=== PATIENT | male | born 1955 | race Caucasian/White ===

== ENCOUNTER 2018-04-17 08:28 | Emergency (ER) | payer OTHER ==
[~2018-04-17] VITALS: Ht 172.7 cm; Wt 106.8 kg
--- NOTE | ~2018-04-17 | MORECARE ---
CASE MANAGEMENT DISCHARGE SUMMARY PATIENT: VERONICA GALINDO UNIT: [id number] ADM DATE: AGE: 62 : 57 SEX: M ROOM/BED: AUTHOR: LUCRECIA PROCTOR PHYSICIAN: REFERRING PHYSICIAN: CORY PAL MD DATE OF SERVICE: 04/17/18 Discharge Plan Patient Name: VERONICA GALINDO Facility: [facility]:[place] : 1955 Planned Disposition: Anticipated Discharge Date: Discharge Date: Expected LOS: 0 Initial Reviewer: [email or web address] Initial Review Date: 04/17/2018 Generated: 04/17/18 2:11 pm Comments DCP- Discharge Planning Updated by [email or web address]: Antoinette Wright on 04/17/18 12:[address] Contacted Zenia @[email or web address] per patient request, provided required information for , RN, DX. Await CB. Antoinette Wright RN CM Last DP export: 04/17/18 12:04 Patient Name: VERONICA GALINDO Page 48860 at 1311 All edits/amendments must be made on the electronic document DICTATION DATE: 04/17/18 131 SHOE PLANNER: OMKAR 04/17/18 1311 RPT#: [id number] DC DATE: STATUS: REG ER [facility] [address] [place] [address] END OF REPORT
--- NOTE | ~2018-04-17 | MORECARE ---
CASE MANAGEMENT DISCHARGE SUMMARY PATIENT: VERONICA GALINDO UNIT: [id number] ADM DATE: AGE: 62 : 57 SEX: M ROOM/BED: AUTHOR: LUCRECIA PROCTOR PHYSICIAN: REFERRING PHYSICIAN: CORY PAL MD DATE OF SERVICE: 04/17/18 Discharge Plan Patient Name: VERONICA GALINDO Facility: [facility]:[place] : 1955 Planned Disposition: Anticipated Discharge Date: Discharge Date: Expected LOS: 0 Initial Reviewer: [email or web address] Initial Review Date: 04/17/2018 Generated: 04/17/18 2:04 pm Patient Name: VERONICA GALINDO Page 92711 at 1304 All edits/amendments must be made on the electronic document DICTATION DATE: 04/17/18 1304 POISON INFORMATION SPECIALIST: OMKAR 04/17/18 1304 RPT#: [id number] DC DATE: STATUS: REG ER [facility] [address] [place] [address] END OF REPORT
--- NOTE | ~2018-04-17 | MORECARE ---
CASE MANAGEMENT DISCHARGE SUMMARY PATIENT: VERONICA GALINDO UNIT: [id number] ADM DATE: AGE: 62 : 57 SEX: M ROOM/BED: AUTHOR: LUCRECIA PROCTOR PHYSICIAN: REFERRING PHYSICIAN: CORY PAL MD DATE OF SERVICE: 04/19/18 Discharge Plan Patient Name: VERONICA GALINDO Facility: [facility]:[place] : 1955 Planned Disposition: Anticipated Discharge Date: Discharge Date: 04/17/2018 Expected LOS: 0 Initial Reviewer: [email or web address] Initial Review Date: 04/17/2018 Generated: 04/19/18 4:59 pm Comments DCP- Discharge Planning Updated by [email or web address]: Antoinette Wright on 04/17/18 12:[address] Contacted Zenia [email or web address] per patient request, provided required information for , RN, DX. Await CB. Antoinette Wright RN CM Last DP export: 04/17/18 12:11 Patient Name: VERONICA GALINDO Page 50751 at 1559 All edits/amendments must be made on the electronic document DICTATION DATE: 04/19/181558 SILVERER: OMKAR 04/19/181558 RPT#: [id number] DC DATE:04/17/18 STATUS: DEP [address] [address] END OF REPORT
[2018-04-17 08:46] VITALS: Ht 172.7 cm; Wt 106.8 kg
[2018-04-17] MEDS ORDERED: DILAUDID4 MG PO (14:00)
[2018-04-17 14:46] VITALS: BP 143/91
== END 2018-04-17 14:49 | disposition home or self-care (01) ==
LOC: D.ER 08:28
DX: M54.5 Low back pain (principal); G58.8 Other specified mononeuropathies

== ENCOUNTER 2018-12-29 14:57 | Inpatient (IN) | payer OTHER ==
[~2018-12-29] VITALS: Ht 172.7 cm; Wt 103.9 kg
--- NOTE | ~2018-12-29 | CN ---
PATIENT NAME:VERONICA GALINDO MEDICAL RECORD: [id number] : 57 LOCATION:D.MS [address] ADMIT DATE: 12/29/18 ACCOUNT: [id number] CONSULTING PHYSICIAN: MORRIS ARIAS MD REFERRING PHYSICIAN: SMITA CASSIDY MD DATE OF CONSULTATION: 01/01/2019 CARDIOLOGY CONSULTATION. DIAGNOSES: 1. Preoperative evaluation. 2. Hypertension. 3. Hyperlipidemia. 4. Diabetes. HISTORY OF PRESENT ILLNESS: Mr. Galindo has had no previous cardiac history, has risk factors of hypertension, hyperlipidemia, and diabetes. No chest pain. No chest discomfort, no palpitations, no shortness of breath or dyspnea on exertion, was admitted with pancreatitis, is now being evaluated for laparoscopic cholecystectomy. EKG is with no ST-T abnormalities. PHYSICAL EXAMINATION: GENERAL APPEARANCE: Well-nourished, well-developed, appears stated age. Level of distress, comfortable. PSYCHIATRIC: Mental status, alert, normal affect. Orientation, oriented to time, place and person. EYES: Lids and conjunctiva, noninjected. No discharge, no pallor. ENT: Lips, teeth, gums, normal dentition. Oropharynx, no cyanosis, no pallor. NECK: Carotid arteries, bilateral normal upstroke, no bruits, no thrills. JUGULAR VEINS: No jugular venous pressure or distention. CERVICAL LYMPH NODES: Nontender, nonenlarged. THYROID: Not enlarged. Nontender. No nodules. LUNGS: Respiratory effort, unlabored. CHEST: Normal curvature. No thoracic deformity. No chest wall tenderness. Percussion, resonant. Auscultation, clear. No wheezes, no rales, no rhonchi. CARDIOVASCULAR: Precordial exam, nondisplaced. No heaves or pericardial thrills. Rate and rhythm, regular. Heart sounds, normal S1, normal S2. No S3, no gallop, no rub. Systolic murmur, not heard. Diastolic murmur, not heard. EXTREMITIES: No cyanosis, no edema. Peripheral pulses, full and equal in all extremities, except as noted. No bruits appreciated. ABDOMEN: Soft, nondistended. Normal aorta. No bruit. Nontender. No masses. Liver, nontender, no hepatomegaly. Spleen, nontender, no splenomegaly. MUSCULOSKELETAL: No joint tenderness. No joint swelling. No erythema. NEUROLOGICAL: Normal gait, normal strength, normal tone. SKIN: Warm and dry. OVERALL IMPRESSION: Low risk from a cardiac standpoint, multiple risk factors. Normal EKG, no symptomatology at this time, proceed with surgery at low cardiac risk. TRANSINT:[id number] Voice Confirmation ID: [id number] DOCUMENT ID: [id number] CONSULT REPORT [id number] VERONICA GALINDO JEFFREY MD CC: [id number] DICTATION DATE: 01/01/19 1158 CHRONOGRAPH OPERATOR: 01/01/19 1320 ADM IN [place] [id number] [place] [address]
[~2018-12-29 14:57] MED LIST: DILAUDID4 MG PO
[2018-12-29 15:43] LABS: BASOPHILS 0.1 % (0-2); EOSINOPHILS 0.8 % (0-7); HEMATOCRIT 39.8 % (42.0-54.0); HEMOGLOBIN 13.2 g/dL (13.5-17.5); IMMATURE GRANULOCYTES 0.3 % (0-5); LYMPHOCYTES 12.6 % (15-50); MCH 27.4 pg (26.0-34.0); MCHC 33.2 g/dL (31.0-37.0); MCV 82.7 fL (80.0-100.0); MEAN PLATELET VOLUME 11.3 fL (7.4-10.4); MONOCYTES 7.8 % (2-11); NEUTROPHILS 78.4 % (40-80); PLATELET COUNT 140 10x3/uL (130-400); RBC 4.81 10x6/uL (4.20-6.10); RDW 14.7 % (11.5-14.5); WBC 7.9 10x3/uL (4.8-10.8)
[2018-12-29 16:06] LABS: ALBUMIN 3.3 g/dL (3.4-5.0); ALKALINE PHOSPHATASE 53 U/L (46-116); ALT (SGPT) 28 U/L (10-68); BILIRUBIN - TOTAL 0.76 mg/dL (0.2-1.3); CALC OSMOLALITY 286 mosm/kg (275-300); CALCIUM 9.1 mg/dL (8.5-10.1); CARBON DIOXIDE 23.5 mmol/L (21.0-32.0); CHLORIDE - SERUM 103 mmol/L (98-107); CREATININE - SERUM 1.6 mg/dL (0.6-1.3); GLUCOSE 264 mg/dL (74-106); SODIUM 137 mmol/L (136-145); UREA NITROGEN 25 mg/dL (7-18); eGFR NON AFRICAN AMERICAN 47 mL/min (90-120)
[2018-12-29 16:09] LABS: AMYLASE - SERUM 57 U/L (25-115); LIPASE 187 U/L (73-393); TROPONIN-I < 0.017 ng/mL (0.000-0.060)
[2018-12-29 17:17] LABS: APPEARANCE CLEAR (CLEAR); BILIRUBIN NEGATIVE (NEGATIVE); COLOR YELLOW (YELLOW); GLUCOSE 250 mg/dL (NEGATIVE); KETONE SMALL mg/dL (NEGATIVE); NITRITE NEGATIVE (NEGATIVE); PROTEIN 1+ mg/dL (NEGATIVE); UROBILINOGEN NORMAL (NORMAL)
[2018-12-29 17:52] VITALS: BP 153/81
[2018-12-29 18:26] LABS: CHOL - HDL RATIO 3.2 ratio (2.3-4.9); LDL-HDL RATIO 1.5 ratio (1.5-3.5)
[2018-12-29 18:49] VITALS: BP 157/76
[2018-12-29] MEDS ORDERED: CRESTOR20 MG PO (20:39)
[2018-12-29] MEDS ORDERED: LEVEMIR IN100 UNITS/ SC ×2 (20:40)
[2018-12-29] MEDS ORDERED: PRINIVIL20 MG PO (20:41)
[2018-12-29] MEDS ORDERED: TERAZOSIN HCL2 MG PO (20:41)
[2018-12-29] MEDS ORDERED: OMEPRAZOLE20 M1 PO (20:41)
[2018-12-29] MEDS ORDERED: NOVOLOG100 UNIT/1 SC (20:42)
[2018-12-29] MEDS ORDERED: GLIMEPIRIDE4 MG PO (20:43)
[2018-12-29] MEDS ORDERED: LASIX20 MG PO (22:11)
[2018-12-29 22:53] VITALS: BP 144/82; BMI 35.0
[2018-12-30 04:00] VITALS: BP 142/77
[2018-12-30 09:11] VITALS: BP 144/74
[2018-12-30 13:08] VITALS: BMI 34.9
[2018-12-30 16:04] LABS: BASOPHILS 0.1 % (0-2); EOSINOPHILS 1.9 % (0-7); HEMATOCRIT 36.4 % (42.0-54.0); LYMPHOCYTES 17.2 % (15-50); MCH 27.6 pg (26.0-34.0); MCV 83.9 fL (80.0-100.0); MEAN PLATELET VOLUME 11.7 fL (7.4-10.4); MONOCYTES 10.2 % (2-11); NEUTROPHILS 70.6 % (40-80); PLATELET COUNT 137 10x3/uL (130-400); RBC 4.34 10x6/uL (4.20-6.10); RDW 14.8 % (11.5-14.5); WBC 7.3 10x3/uL (4.8-10.8)
[2018-12-30 16:40] LABS: ALBUMIN 3.1 g/dL (3.4-5.0); ANION GAP 15.9 mmol/L (8-16); BILIRUBIN - TOTAL 0.63 mg/dL (0.2-1.3); CALCIUM 8.7 mg/dL (8.5-10.1); CARBON DIOXIDE 21.8 mmol/L (21.0-32.0); CREATININE - SERUM 1.7 mg/dL (0.6-1.3); POTASSIUM - SERUM 3.7 mmol/L (3.5-5.1); PROTEIN - SERUM 6.1 g/dL (6.4-8.2)
[2018-12-30 17:30] VITALS: BP 122/82
[2018-12-30 20:00] VITALS: BP 139/74
[2018-12-31 01:37] VITALS: BP 116/52
[2018-12-31 06:05] LABS: BASOPHILS 0.2 % (0-2); EOSINOPHILS 4.5 % (0-7); HEMATOCRIT 36.6 % (42.0-54.0); HEMOGLOBIN 11.6 g/dL (13.5-17.5); IMMATURE GRANULOCYTES 0.2 % (0-5); LYMPHOCYTES 25.6 % (15-50); MCH 27.2 pg (26.0-34.0); MCHC 31.7 g/dL (31.0-37.0); MEAN PLATELET VOLUME 11.7 fL (7.4-10.4); MONOCYTES 10.4 % (2-11); NEUTROPHILS 59.1 % (40-80); PLATELET COUNT 143 10x3/uL (130-400); RBC 4.26 10x6/uL (4.20-6.10); RDW 15.1 % (11.5-14.5); WBC 6.3 10x3/uL (4.8-10.8)
[2018-12-31 06:20] LABS: ALBUMIN 2.8 g/dL (3.4-5.0); ALKALINE PHOSPHATASE 45 U/L (46-116); ALT (SGPT) 27 U/L (10-68); AMYLASE - SERUM 52 U/L (25-115); BILIRUBIN - TOTAL 0.44 mg/dL (0.2-1.3); CALCIUM 8.4 mg/dL (8.5-10.1); CHLORIDE - SERUM 108 mmol/L (98-107); CREATININE - SERUM 1.6 mg/dL (0.6-1.3); LIPASE 149 U/L (73-393); MAGNESIUM - SERUM 2.3 mg/dL (1.8-2.4); MCV 85.9 fL (80.0-100.0); PHOSPHOROUS 3.4 mg/dL (2.5-4.9); POTASSIUM - SERUM 4.2 mmol/L (3.5-5.1); PROTEIN - SERUM 6.2 g/dL (6.4-8.2); SODIUM 141 mmol/L (136-145); UREA NITROGEN 19 mg/dL (7-18); eGFR NON AFRICAN AMERICAN 47 mL/min (90-120)
[2018-12-31 06:25] LABS: CALC OSMOLALITY 283 mosm/kg (275-300); CARBON DIOXIDE 27.5 mmol/L (21.0-32.0); GLUCOSE 120 mg/dL (74-106); TROPONIN-I < 0.017 ng/mL (0.000-0.060)
[2018-12-31 09:30] VITALS: BP 141/80
[2018-12-31 14:01] VITALS: BP 147/78
--- NOTE | 2018-12-31 15:58 | MORECARE ---
CASE MANAGEMENT DISCHARGE SUMMARY PATIENT: VERONICA GALINDO UNIT: [id number] ADM DATE: 12/29/18 AGE: 63 : 57 SEX: M ROOM/BED: D.2215 AUTHOR: LUCRECIA PROCTOR PHYSICIAN: REFERRING PHYSICIAN: SMITA CASSIDY MD DATE OF SERVICE: 12/31/18 Discharge Plan Patient Name: VERONICA GALINDO [facility] [facility] 1955 Planned Disposition: Home Anticipated Discharge Date: Discharge Date: Expected LOS: Initial Reviewer: [email or web address] Initial Review Date: 12/29/2018 Generated: 12/31/18 4:58 pm DCPIA - Discharge Planning Initial Assessment Updated by [email or web address]: Racquel Sanchez on 12/31/18 3:57 pm * Is the patient Alert and Oriented? Yes * How many steps to enter\exit or inside your home? * [place]CP [facility] ([place]) * [place] * Preadmission Environment Home with Family * ADLs Independent * Equipment None * List name and contact numbers for known caregivers / representatives who currently or will assist patient after discharge: Dillon Womack [phone] * Verbal permission to speak to the caregivers and representatives has been obtained from the patient. N/A * Community resources currently utilized None * Additional services required to return to the preadmission environment? No * Can the patient safely return to the preadmission environment? Yes * Has this patient been hospitalized within the prior 30 days at any hospital? No Patient Name: VERONICA GALINDO Page 50397 at 1558 All edits/amendments must be made on the electronic document DICTATION DATE: 12/31/18 1558 RESTAURANT DISTRICT MANAGER: OMKAR 12/31/18 1558 RPT#: [id number] DC DATE: STATUS: ADM IN [facility] [address] [place] [address] END OF REPORT
[2018-12-31 15:59] LABS: BASOPHILS 0.3 % (0-2); EOSINOPHILS 4.4 % (0-7); HEMATOCRIT 36.5 % (42.0-54.0); HEMOGLOBIN 11.6 g/dL (13.5-17.5); IMMATURE GRANULOCYTES 0.2 % (0-5); LYMPHOCYTES 22.3 % (15-50); MCH 27.2 pg (26.0-34.0); MCHC 31.8 g/dL (31.0-37.0); MCV 85.5 fL (80.0-100.0); MEAN PLATELET VOLUME 11.5 fL (7.4-10.4); MONOCYTES 9.3 % (2-11); NEUTROPHILS 63.5 % (40-80); PLATELET COUNT 139 10x3/uL (130-400); RBC 4.27 10x6/uL (4.20-6.10); RDW 14.9 % (11.5-14.5); WBC 6.5 10x3/uL (4.8-10.8)
--- NOTE | 2018-12-31 16:06 | MORECARE ---
CASE MANAGEMENT DISCHARGE SUMMARY PATIENT: VERONICA GALINDO UNIT: [id number] ADM DATE: 12/29/18 AGE: 63 : 57 SEX: M ROOM/BED: D.2215 AUTHOR: ESTHELADOC PHYSICIAN: REFERRING PHYSICIAN: SMITA CASSIDY MD DATE OF SERVICE: 12/31/18 Discharge Plan Patient Name: VERONICA GALINDO Facility: [facility]:[place] : 1955 Planned Disposition: Home Anticipated Discharge Date: Discharge Date: Expected LOS: Initial Reviewer: [email or web address] Initial Review Date: 12/29/2018 Generated: 12/31/18 5:06 pm Comments DCP- Discharge Planning Updated by [email or web address]: Racquel Sanchez on 12/31/18 3:[address] Patient Name: VERONICA GALINDO Admission Status: ER Accout number: [id number] Admission Date: 12-29-2018 : 1955 Admission Diagnosis:BILIARY ACUTE PANCREATITIS WITHOUT NECROSIS OR INFECTIO Attending: SMITA CASSIDY Current LOS: 2 Anticipated DC Date: Planned Disposition: Home Primary Insurance: [employer] Discharge Planning Comments: CM met with patient to complete initial dc planning assessment. CM educated patient on the CM role and verbal consent given by patient to complete assessment. Patient lives at home with his brother in law where he is independent with his care. At discharge patient plans to return home and feels this is a safe discharge. CM discussed availability of home health, rehab services, and medical equipment. Patient denied known discharge needs at this time. His brother in law will be his package car driver home. CM will continue to follow and will assist as needed with dc plans/needs. Car Ferry Master: Racquel Sanchez DCPIA - Discharge Planning Initial Assessment Updated by [email or web address]: Racquel Sanchez on 12/31/18 3:57 pm * Is the patient Alert and Oriented? Yes * How many steps to enter\exit or inside your home? * [place] [facility] [place] * [place] * Preadmission Environment Home with Family * ADLs Independent * Equipment None * List name and contact numbers for known caregivers / representatives who currently or will assist patient after discharge: Dillon Womack [phone] * Verbal permission to speak to the caregivers and representatives has been obtained from the patient. N/A * Community resources currently utilized None * Additional services required to return to the preadmission environment? No * Can the patient safely return to the preadmission environment? Yes * Has this patient been hospitalized within the prior 30 days at any hospital? No Last DP export: 12/31/18 2:58 pm Patient Name: VERONICA GALINDO Page 41537 at 1606 All edits/amendments must be made on the electronic document DICTATION DATE: 12/31/18 1605 SURGICAL CONSULTANT: OMKAR 12/31/18 1605 RPT#: [id number] DC DATE: STATUS: ADM IN [facility] [address] [place] [address] END OF REPORT
[2018-12-31 16:20] LABS: INR 1.02 (0.85-1.17); PROTIME 12.9 SECONDS (11.6-15.0)
[2018-12-31 16:25] LABS: ALBUMIN 2.9 g/dL (3.4-5.0); ANION GAP 11.2 mmol/L (8-16); BILIRUBIN - TOTAL 0.44 mg/dL (0.2-1.3); CALCIUM 8.2 mg/dL (8.5-10.1); CREATININE - SERUM 1.5 mg/dL (0.6-1.3); POTASSIUM - SERUM 4.2 mmol/L (3.5-5.1); PROTEIN - SERUM 6.5 g/dL (6.4-8.2)
[2018-12-31 17:42] VITALS: BP 150/56
[2018-12-31 20:00] VITALS: BP 140/55
[2019-01-01] VITALS: BP 120/48
[2019-01-01 05:16] LABS: BASOPHILS 0.4 % (0-2); EOSINOPHILS 5.4 % (0-7); HEMATOCRIT 34.6 % (42.0-54.0); HEMOGLOBIN 11.4 g/dL (13.5-17.5); LYMPHOCYTES 24.4 % (15-50); MCHC 32.9 g/dL (31.0-37.0); MEAN PLATELET VOLUME 11.4 fL (7.4-10.4); MONOCYTES 9.5 % (2-11); NEUTROPHILS 60.3 % (40-80); PLATELET COUNT 148 10x3/uL (130-400); RBC 4.07 10x6/uL (4.20-6.10); RDW 14.7 % (11.5-14.5); WBC 5.2 10x3/uL (4.8-10.8)
[2019-01-01 06:14] LABS: ALBUMIN 2.6 g/dL (3.4-5.0); ANION GAP 10.9 mmol/L (8-16); BILIRUBIN - TOTAL 0.41 mg/dL (0.2-1.3); CARBON DIOXIDE 25.3 mmol/L (21.0-32.0); CREATININE - SERUM 1.4 mg/dL (0.6-1.3); POTASSIUM - SERUM 4.2 mmol/L (3.5-5.1); PROTEIN - SERUM 5.9 g/dL (6.4-8.2)
[2019-01-01 08:49] VITALS: BP 126/54
[2019-01-01 09:12] VITALS: Ht 172.7 cm; Wt 103.9 kg
[2019-01-01 13:23] VITALS: BP 135/56
[2019-01-01 17:43] VITALS: BP 154/49
[2019-01-01 21:41] VITALS: BP 162/76
[2019-01-02] VITALS: BP 142/59
[2019-01-02 04:00] VITALS: BP 144/61
[2019-01-02 05:30] LABS: BASOPHILS 0.2 % (0-2); EOSINOPHILS 5.8 % (0-7); HEMATOCRIT 35.3 % (42.0-54.0); HEMOGLOBIN 11.5 g/dL (13.5-17.5); IMMATURE GRANULOCYTES 0.2 % (0-5); LYMPHOCYTES 26.1 % (15-50); MCH 27.6 pg (26.0-34.0); MCHC 32.6 g/dL (31.0-37.0); MCV 84.7 fL (80.0-100.0); MEAN PLATELET VOLUME 11.4 fL (7.4-10.4); MONOCYTES 9.3 % (2-11); NEUTROPHILS 58.4 % (40-80); PLATELET COUNT 155 10x3/uL (130-400); RBC 4.17 10x6/uL (4.20-6.10); RDW 14.6 % (11.5-14.5); WBC 5.5 10x3/uL (4.8-10.8)
[2019-01-02 05:43] LABS: ALBUMIN 2.8 g/dL (3.4-5.0); ANION GAP 11.9 mmol/L (8-16); BILIRUBIN - TOTAL 0.35 mg/dL (0.2-1.3); CALCIUM 8.3 mg/dL (8.5-10.1); CARBON DIOXIDE 25.6 mmol/L (21.0-32.0); CREATININE - SERUM 1.3 mg/dL (0.6-1.3); POTASSIUM - SERUM 4.5 mmol/L (3.5-5.1); PROTEIN - SERUM 6.4 g/dL (6.4-8.2)
[2019-01-02 10:01] VITALS: BP 148/56
[2019-01-02 14:45] VITALS: BP 151/75
[2019-01-02 20:00] VITALS: BP 175/74
[2019-01-03] VITALS: BP 138/50; BP 139/75
[2019-01-03 04:00] VITALS: BP 134/52
[2019-01-03 04:31] LABS: BASOPHILS 0.2 % (0-2); EOSINOPHILS 2.2 % (0-7); HEMATOCRIT 33.8 % (42.0-54.0); HEMOGLOBIN 11.2 g/dL (13.5-17.5); IMMATURE GRANULOCYTES 0.2 % (0-5); LYMPHOCYTES 13.4 % (15-50); MCH 27.7 pg (26.0-34.0); MCHC 33.1 g/dL (31.0-37.0); MCV 83.7 fL (80.0-100.0); MEAN PLATELET VOLUME 10.7 fL (7.4-10.4); MONOCYTES 8.4 % (2-11); NEUTROPHILS 75.6 % (40-80); PLATELET COUNT 142 10x3/uL (130-400); RBC 4.04 10x6/uL (4.20-6.10); RDW 14.6 % (11.5-14.5)
[2019-01-03 04:49] LABS: ALBUMIN 2.7 g/dL (3.4-5.0); ANION GAP 8.9 mmol/L (8-16); BILIRUBIN - TOTAL 0.44 mg/dL (0.2-1.3); CALCIUM 7.8 mg/dL (8.5-10.1); CARBON DIOXIDE 26.3 mmol/L (21.0-32.0); CREATININE - SERUM 1.3 mg/dL (0.6-1.3); POTASSIUM - SERUM 4.2 mmol/L (3.5-5.1); PROTEIN - SERUM 5.9 g/dL (6.4-8.2)
[2019-01-03 08:30] VITALS: BP 153/61
[2019-01-03 12:32] VITALS: BP 155/80
--- NOTE | 2019-01-03 16:07 | OP ---
PATIENT NAME: VERONICA GALINDO MEDICAL RECORD: [id number] :57 LOCATION:D.MS [address] ADMISSION DATE:12/29/18 SURGEON: JEFF ELLIS MD DATE OF OPERATION: 01/02/2019 PREOPERATIVE DIAGNOSIS: Gallstone pancreatitis. POSTOPERATIVE DIAGNOSES: Gallstone pancreatitis with extensive intraabdominal adhesions. PROCEDURE: 1. Laparoscopic cholecystectomy. 2. Intraoperative cholangiography without immediate surgeon interpretation. SURGEON: Jeff Ellis MD DIRECTOR EMPLOYEE COMMUNICATIONS: None. BLOOD LOSS: Less than 50 cc. ANESTHESIA: General. COMPLICATIONS: None. DRAINS: A 10-[place] Islander closed suction drainage system. The risks, possible complications and alternatives to procedure were explained to the patient. He elects to proceed. The discussion specifically included, but was not limited to, bleeding requiring emergency reoperation, infection, bile duct injury as well as intestinal injury. OPERATIVE COURSE: The patient was conveyed to the operating room electively on 01/02/2019. General anesthesia was induced by the anesthesia staff. The abdomen was sterilely prepped and draped. A small skin incision was accomplished in the left upper quadrant. A Veress needle was inserted through the skin incision. CO2 insufflation was begun. Once a sufficient pneumoperitoneum had been achieved, a 5-mm trocar was inserted in the left upper quadrant. Under direct internal vision, utilizing a television camera, another 5-mm trocar was inserted this time in the left lower quadrant. These additional trocars were inserted due to the extensive intraabdominal adhesions. I began a sharp adhesiolysis. At no time was there any enterotomy. I took down adhesions from the patient's mesh. Once I had performed sharp adhesiolysis and had opened up enough room in the midline and in the right upper quadrant, I placed additional trocars. A transverse incision was accomplished above the umbilicus in the midline. I dissected down through mesh. Three more trocars were inserted. These were inserted in the right side of the abdomen. These were 5-mm trocars. I then advanced a cholangiogram trocar. I punctured the fundus of the gallbladder. I aspirated bile. I then injected dye. A cholangiographic image was obtained and this likely is going to be nondiagnostic. The cholangiographic image was sent to the radiologist for interpretation. I then aspirated bile and withdrew the cholangiogram trocar. OPERATIVE REPORT [id number] VERONICA GALINDO The gallbladder was grasped and retracted cephalad. Adhesions were taken down sharply. Blunt dissection was begun on the triangle of [place]. One cystic artery and one cystic duct were identified. These were clipped multiply and divided between clips. The gallbladder was then excised from its bed in the liver. It was placed within a bag retrieval device and was withdrawn through the supraumbilical incision. The 12-mm trocars were placed and the abdomen reinsufflated. I irrigated and aspirated in the right upper quadrant. There was no bleeding even at low pressure of 8. The 10-[place] Islander drain was advanced through the lateral most trocar site in the right upper quadrant. All trocars were removed and the abdomen desufflated. The drain was sutured to skin with a 4-0 nylon suture. The fascia in the midline was closed with a [id number] 0 Vicryl suture. Skin incisions were closed with interrupted intracuticular 3-0 Vicryls. Benzoin and Steri-Strips were applied. The patient was then extubated and conveyed to post-anesthesia care unit where he was in stable condition. I am going to plan to keep him in hospital overnight and likely I will remove the drain, which is an indicator drain, in the morning and then he will be dismissed home. TRANSINT:[id number] Voice Confirmation ID: [id number] DOCUMENT ID: [id number] JEFF ELLIS MD at 1607 CC: SMITA CASSIDY MD [id number] DICTATION DATE: 01/02/191421 [employer] COMPANY DRIVER: 01/02/19 1447 ADM IN [place] [id number] [place] [id number]
[2019-01-03] MEDS ORDERED: HYDROCODON-ACE1 EAC7 PO (17:24)
[2019-01-03] MEDS ORDERED: COLACE100 MG PO (17:25)
== END 2019-01-03 17:49 | disposition home or self-care (01) | DRG 418 ==
LOC: D.ER 14:57 → D.MS 18:17
PROVIDERS: Anesthesiology; Emergency Medicine; Family Medicine; Surgery; ADMIT Internal Medicine Nephrology; ATTEND Internal Medicine Nephrology
PROC: 0FT44ZZ Resection of Gallbladder, Percutaneous Endoscopic Approach (ICD-10-PCS; principal; 2019-01-02 11:45)
DX: K85.10 Biliary acute pancreatitis without necrosis or infection (principal); N17.9 Acute kidney failure, unspecified; E86.0 Dehydration; K59.00 Constipation, unspecified; E11.65 Type 2 diabetes mellitus with hyperglycemia; I10 Essential (primary) hypertension; K80.20 Calculus of gallbladder without cholecystitis without obstruction